=== PATIENT | male | born 1970 | race African-American/Black ===

== ENCOUNTER 2021-08-17 05:31 | Day surgery (SDC) | payer OTHER ==
[~2021-08-17 05:31] MED LIST: ATORVASTATIN CA10 MG PO; DICLOFENAC POTA50 MG PO; GABAPENTIN800 M1 PO; IBU800 MG PO; LOSARTAN-HCTZ1 EACH PO; MEDROL4 MG PO; PROTONIX40 MG PO; SYNTHROID100 MCG PO; URSODIOL250 MG PO; ZANAFLEX4 MG PO
== END 2021-08-17 11:40 | disposition home or self-care (01) ==
LOC: CIR.AMB 05:31
PROVIDERS: ATTEND Orthopaedic Surgery Hand Surgery
DX: M65.322 Trigger finger, left index finger (principal); I10 Essential (primary) hypertension; E03.9 Hypothyroidism, unspecified